=== PATIENT | female | born 1965 | race Caucasian/White ===

== ENCOUNTER → 2018-09-02 | Outpatient (CLI) | payer OTHER | LOC: M.RAD 15:55 | DX: S52.612A Displaced fracture of left ulna styloid process, initial encounter for closed fracture (principal); M25.531 Pain in right wrist; M25.532 Pain in left wrist; R20.0 Anesthesia of skin; R20.2 Paresthesia of skin; X58.XXXA Exposure to other specified factors, initial encounter; Y93.89 Activity, other specified; Y92.89 Other specified places as the place of occurrence of the external cause; Y99.8 Other external cause status ==